=== PATIENT | male | born 1990 | race Caucasian/White ===

== ENCOUNTER 2016-05-21 00:39 | Emergency (ER) | payer OTHER ==
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
== END 2016-05-21 01:45 | disposition home or self-care (01) ==
LOC: JD.ED 00:39
CPT/HCPCS: 99283; 99284